=== PATIENT | female | born 1990 | race Caucasian/White ===

== ENCOUNTER 2016-11-19 12:26 | Emergency (ER) | payer OTHER ==
[~2016-11-19] VITALS: Ht 157.5 cm; Wt 58.0 kg
[~2016-11-19 12:26] MED LIST: COL100 PO; LIPITOR40 MG PO; NORCO1 TA2 PO
[2016-11-19 16:09] LABS: BASOPHIL % 0.3 % (0-2); PLATELET COUNT 448 x10^3mcL (130-400); RED CELL DISTRIBUTION WIDTH 13.9 % (11.5-14.5)
[2016-11-19 16:44] VITALS: BP 128/66
== END 2016-11-19 17:20 | disposition home or self-care (01) ==
LOC: ED 12:26
PROVIDERS: Emergency Medicine
DX: O46.91 Antepartum hemorrhage, unspecified, first trimester (principal); R11.2 Nausea with vomiting, unspecified; Z3A.08 8 weeks gestation of pregnancy
CPT/HCPCS: 36415; J2270; Q0162

== ENCOUNTER 2017-03-29 13:19 | Emergency (ER) | payer OTHER ==
[2017-03-29 13:30] VITALS: BP 140/110
== END 2017-03-29 17:00 | disposition left against medical advice (07) ==
LOC: ED 13:19
DX: Z53.21 Procedure and treatment not carried out due to patient leaving prior to being seen by health care provider (principal)